=== PATIENT | female | born 1970 | race Caucasian/White ===

== ENCOUNTER → 2018-02-17 | Outpatient (CLI) | payer OTHER ==
--- NOTE | 2018-02-17 15:11 | RAD ---
MRI Lumbar Spine without contrast History: Right lumbar radiculitis, new onset low back pain into the right lower extremity for 3 weeks Technique: Multiplanar, multi sequential noncontrast MR imaging was performed of the lumbar spine. Contrast: None Comparison: None Findings: Lumbar vertebral body stature and AP alignment are maintained. Conus terminates at L1-2. There is mild degenerative disc disease L2-L3 through L4-5, mild disc desiccation L5-S1. There is posterior annular tear L4-5, anterior annular tear L3-4. There is no significant marrow edema. Not fully included, there is probable cyst of the left pelvis about 2.4 cm. L1-L2: Spinal canal and neural foramina are adequate. L2-L3: Neural foramina and spinal canal are adequate. There is minimal buckling of the ligamentum flavum and facet degenerative change. L3-L4: There is mild buckling of the ligamentum flavum. There is negligible bulge. Spinal canal and neural foramina are adequate. There is very shallow protrusion in the right extraforaminal region, near the ventral undersurface exiting right L3 nerve root without significant displacement. L4-L5: There is minimal disc osteophyte complex and bulge. There is minimal narrowing of the far lateral recesses greater on the left. There is minimal buckling of the ligamentum flavum and facet degenerative change. Neural foramina are adequate. L5-S1: Neural foramina and spinal canal are adequate. Impression: 1. There is mild degenerative disc disease L2-3 through L4-5. There is no significant lumbar spinal stenosis, minimal narrowing of the far lateral recesses greater on the left at L4-5. Lumbar neural foramina are overall adequate. There is a shallow extraforaminal protrusion at L3-4, near the exiting right L3 nerve root without displacement. 2. There is 2.4 cm cystic focus of the visualized left pelvis not fully included, possible adnexal cyst. Electronically signed by: Mariano Mejía MD (02/17/2018 11:16 AM) [id number] DICTATED and SIGNED BY: MARIANO MEJÍA MD DATE: 02/17/18 1111 MTDD
== END | disposition home or self-care (01) ==
LOC: KCIC MRI 09:38
PROVIDERS: ATTEND Internal Medicine Cardiovascular Disease
DX: M51.36 Other intervertebral disc degeneration, lumbar region (principal); M48.061 Spinal stenosis, lumbar region without neurogenic claudication; M25.78 Osteophyte, vertebrae
CPT/HCPCS: 72148